=== PATIENT | male | born 1990 | race Caucasian/White ===

== ENCOUNTER 2019-11-30 13:49 | Outpatient (CLI) | payer OTHER ==
--- NOTE | 2019-11-30 14:18 | RAD ---
EXAM: XR Lumbar Spine 2 Or 3 View PROVIDED CLINICAL HISTORY: Lumbar herniated nucleus pulposus. Patient with low back pain and left leg numbness which has now res olved. COMPARISON: None FINDINGS: Lateral views of the lumbar spine including flexion-extension views are provided. The vertebral body heights are within normal limits. There is mild loss of intervertebral disc height at the L5-S1 level. No subluxation is seen. IMPRESSION: 1. Mild degenerative changes at the lumbosacral junction. No subluxation is seen.
== END 2019-11-30 13:50 | disposition home or self-care (01) ==
LOC: TBSIIMAG 13:49
PROVIDERS: ATTEND Neurological Surgery
DX: M51.26 Other intervertebral disc displacement, lumbar region (principal); M47.817 Spondylosis without myelopathy or radiculopathy, lumbosacral region
CPT/HCPCS: 72100

== ENCOUNTER 2020-02-08 12:27 | Outpatient (CLI) | payer OTHER ==
--- NOTE | 2020-02-08 12:47 | RAD ---
EXAM: XR Lumbar Spine 2 Or 3 View PROVIDED CLINICAL HISTORY: Lumbar radiculopathy, lumbar HNP COMPARISON: 11/30/2019 FINDINGS: Neutral lateral and flexion extension views lumbar spine are provided. 2 body heights are within norm al limits. There is mild loss of intervertebral disc height the L5-S1 level. No fracture or subluxation is seen on provided lateral views. No interval change from prior exam. IMPRESSION: Stable degenerative changes lumbosacral junction. No subluxation is seen.
--- NOTE | 2020-02-08 13:22 | MRI ---
MRI Lumbar Spine WO Con History: Lumbar radiculopathy. Comparison: Lumbar radiograph same day Findings: Aortic contour is nonaneurysmal. No hydronephrosis. No retroperitoneal periaortic adenopath y. Paraspinal musculature is symmetric. No marrow infiltrative process. Levels are as follows: L1/L2: Normal disc height and hydration. No neural foraminal or spinal canal narrowing. L2/L3: Normal disc height and hydration. No neural foraminal or spinal canal narrowing. L3/L4: Minimal disc bulge. Normal facet joints. No neural foraminal or spinal canal narrowing. L4/L5: Normal disc height and hydration. Minimal disc bulge. No neural foraminal or spinal canal narr owing. Small facet joint effusion. L5/S1: Moderate disc desiccation and height loss. A small circumferential disc osteophyte complex. An terior annular fissure. Small central and bilateral paracentral disc protrusion with transversely oriented annular fissure. This fissure does abut the left traversing S1 nerve root. Moderate facet arthrosis at L5/S1 facet joint effusions and small osteophyte formation. Impression: Moderate spondylosis centered at L5-S1 for which there is a disc protrusion and accompany ing annular fissure abutting the left S1 traversing nerve root.
== END 2020-02-08 12:28 | disposition home or self-care (01) ==
LOC: TBSIIMAG 12:27
PROVIDERS: ATTEND Neurological Surgery
DX: M51.16 Intervertebral disc disorders with radiculopathy, lumbar region (principal); M51.17 Intervertebral disc disorders with radiculopathy, lumbosacral region; M47.27 Other spondylosis with radiculopathy, lumbosacral region
CPT/HCPCS: 72100; 72148

== ENCOUNTER 2020-06-13 14:14 | Outpatient (CLI) | payer OTHER ==
[2020-06-13 15:54] LABS: Hemoglobin 15.5 g/dL (13.5-17.5); Mean Corpuscular HGB CONC 33.8 g/dL (32.0-36.0); Mean Corpuscular Hemoglobin 29.7 pg (27.0-33.0); Mean Corpuscular Volume 87.9 fl (81.2-95.1); Mean Platelet Volume 10.2 fl (7.4-10.4); Platelet Count 329 10x3/uL (150-450); Red Blood Cell (RBC) Count 5.22 10x6/uL (4.32-5.72); White Blood Cell (WBC) Count 7.4 10x3/uL (3.5-10.5)
[2020-06-13 16:24] LABS: INR-International Normal Ratio 1.1; PTT 31.4 sec (22.0-33.0); Prothrombin Time 11.3 sec (9.5-12.1)
[2020-06-14 00:37] LABS: SARS-CoV-2 PCR by NAA Not Detected (NotDetected)
== END 2020-06-13 14:15 | disposition home or self-care (01) ==
LOC: LABBT 14:14
PROVIDERS: ATTEND Neurological Surgery
DX: Z01.812 Encounter for preprocedural laboratory examination (principal); M51.27 Other intervertebral disc displacement, lumbosacral region; Z20.822 Contact with and (suspected) exposure to COVID-19
CPT/HCPCS: 85027; 85610; 85730; 87635; U0003; U0005

== ENCOUNTER 2020-06-18 05:42 | Day surgery (SDC) | payer OTHER ==
[2020-06-14 08:20] VITALS: BMI 34.7
[2020-06-18] MEDS ORDERED: Bupivacaine PF 0.5% 30 ML VIAL ONE (06:09)
[2020-06-18] MEDS ORDERED: Thrombin 5000 UNITS/5 ML VIAL ONE (06:09)
[2020-06-18] MEDS ORDERED: EPINEPHrine 1 MG/ML AMP ONE (06:09)
[2020-06-18] MEDS ORDERED: Fentanyl 100 MCG/2 ML VIAL ONE ×2 (06:28→09:42)
[2020-06-18] MEDS ORDERED: Midazolam HCl 2 mg/2 ml Vial ONE (06:39)
[2020-06-18] MEDS ORDERED: PROPOFOL 200 MG/20 ML VIAL ONE (07:06)
[2020-06-18] MEDS ORDERED: Dexamethasone 20 MG/5 ML VIAL ONE (07:06)
[2020-06-18] MEDS ORDERED: Rocuronium Bromide 10 MG/ML (10ML VIAL) ONE (07:06)
[2020-06-18] MEDS ORDERED: Ondansetron PF 4 MG/2 ML Vial ONE (07:06)
[2020-06-18] MEDS ORDERED: Lidocaine 1% PF 5 ML VIAL ONE (07:06)
[2020-06-18] MEDS ORDERED: HYDROmorphone 2 MG/ML VIAL ONE (07:25)
[2020-06-18] MEDS ORDERED: SUGAMMADEX SODIUM 200 MG/2 ML VIAL ONE (09:00)
[2020-06-18] MEDS ORDERED: Tamsulosin HCl 0.4 MG CAP ONE (09:56)
== END 2020-06-18 12:10 | disposition home or self-care (01) ==
LOC: SDC 05:42
PROVIDERS: ATTEND Neurological Surgery
PROC: 0SB40ZZ Excision of Lumbosacral Disc, Open Approach (ICD-10-PCS; principal; 2020-06-18)
PROC: 01NA0ZZ Release Lumbosacral Plexus, Open Approach (ICD-10-PCS; principal; 2020-06-18)
DX: M51.17 Intervertebral disc disorders with radiculopathy, lumbosacral region (principal); E66.9 Obesity, unspecified; Z68.34 Body mass index [BMI] 34.0-34.9, adult; Z79.1 Long term (current) use of non-steroidal anti-inflammatories (NSAID)
CPT/HCPCS: 76000; J0171; J0690; J1100; J1170; J2250; J2405; J2704; J3010; J3370; J3490; S0020